=== PATIENT | male | born 1975 | race Caucasian/White ===

== ENCOUNTER 2024-06-09 11:34 | Emergency (ER) | payer OTHER, BC ==
[2024-06-09] MEDS: diphenhydrAMINE 25 MG Cap PO ONE (11:47)
[2024-06-09] MEDS: Famotidine 20 MG Tab PO ONE (11:47)
== END 2024-06-09 12:20 | disposition home health service (06) ==
LOC: VM.ED 11:34
DX: T63.481A Toxic effect of venom of other arthropod, accidental (unintentional), initial encounter (principal); Z79.899 Other long term (current) drug therapy
CPT/HCPCS: 99283; A9270-GY